=== PATIENT | male | born 1990 | race Two or more races ===

== ENCOUNTER 2019-07-22 16:02 | Emergency (ER) | payer MEDICAID ==
[~2019-07-22] VITALS: Ht 175.3 cm; Wt 77.1 kg
--- NOTE | 2019-07-22 16:20 | NUR ---
CAME IN FOR RLQ PAIN SINCE THURSDAY, WORSE TODAY, TO ER BED 10, HOOKED TO MONITOR, CHANGED TO HOSP GOWN, WARM BLANKET PROVIDED, AWAITING MD MATTHEW.
--- NOTE | 2019-07-22 17:34 | NUR ---
DR AU AT BEDSIDE
[2019-07-22 17:53] LABS: BASOPHILS % (AUTO) 0.4 % (0.0-2.0); EOSINOPHILS % (AUTO) 1.5 % (0.0-6.0); HEMATOCRIT 45 % (39-51); HEMOGLOBIN 15.4 g/dL (13.5-17.5); LYMPHOCYTES # (AUTO) 1.7 /CMM (0.8-4.8); LYMPHOCYTES % (AUTO) 22.5 % (20.0-44.0); MEAN CORPUSCULAR HGB CONC 34 g/dl (31.0-36.0); MEAN CORPUSCULAR VOLUME 91 fL (80-96); MONOCYTES # (AUTO) 0.7 /CMM (0.1-1.30); MONOCYTES % (AUTO) 9.5 % (2.0-12.0); NEUTROPHILS # (AUTO) 4.8 /CMM (1.8-8.9); NEUTROPHILS % (AUTO) 66.1 % (43.0-81.0); PLATELET COUNT (AUTO) 224 /CMM (150-450); RED BLOOD CELL COUNT(AUTO) 4.98 MIL/uL (4.5-6.0); WHITE BLOOD COUNT (AUTO) 7.3 K/uL (4.3-11.0)
[2019-07-22] MEDS ORDERED: AZITHROMYCIN 250 MG TABLET ONE (17:54)
[2019-07-22] MEDS ORDERED: CEFTRIAXONE 500 MG VIAL ONE (17:54)
[2019-07-22] MEDS ORDERED: LIDOCAINE /MPF 1% VIAL 5 ML VIAL ONE (17:54)
[2019-07-22] MEDS ORDERED: CEFTRIAXONE 500 MG VIAL IM ONE (18:00)
[2019-07-22] MEDS ORDERED: IV NS 0.9% 1,000 ML BAG IV ONE (18:00)
[2019-07-22] MEDS ORDERED: AZITHROMYCIN 250 MG TABLET PO ONE (18:00)
[2019-07-22 18:06] LABS: ALBUMIN 4.1 g/dL (3.4-5.0); BILIRUBIN,DIRECT 0.1 mg/dL (0.0-0.2); BILIRUBIN,TOTAL 0.5 mg/dL (0.2-1.0); CALCIUM, SERUM 9.2 mg/dL (8.5-10.1); POTASSIUM 4.2 mmol/L (3.5-5.1); TOTAL PROTEIN, SERUM 8.4 g/dL (6.4-8.2)
[2019-07-22] MEDS ORDERED: IOHEXOL-300 100 ML VIAL IV ONE (18:14)
[2019-07-22] MEDS ORDERED: CT SWABBABLE VALVE TRANS SET 1 EA INFUS.SET MC ONE (18:14)
[2019-07-22] MEDS ORDERED: IV NS 0.9% 250 ML IV ONE (18:14)
[2019-07-22 18:44] LABS: APPEARANCE,URINE Slightly Cloudy (CLEAR); BILIRUBIN,URINE Negative (NEGATIVE); BLOOD, URINE Negative Ery/uL (NEGATIVE); COLOR,URINE Light yellow (YELLOW); KETONES,URINE Negative (NEGATIVE); LEUKOCYTE ESTERASE ,URINE Negative (NEGATIVE); NITRITE, URINE Negative (NEGATIVE); PROTEIN,URINE Negative (NEGATIVE); UGLUCOSE Negative (NEGATIVE); UROBILINOGEN,URINE 0.2 EU/dL (0.2)
--- NOTE | 2019-07-22 19:18 | NUR ---
IV removed. Catheter intact and site benign. Pressure and 4x4 applied to site. No bleeding noted.Patient discharged to home in stable condition. Written and verbal after care instructions given. Patient verbalizes understanding of instruction.
[2019-07-22 19:19] VITALS: BP 122/69
== END 2019-07-22 19:21 | disposition home or self-care (01) ==
LOC: ER 16:05
DX: K63.89 Other specified diseases of intestine (principal); R19.7 Diarrhea, unspecified; Z60.2 Problems related to living alone
CPT/HCPCS: 36415; 74177; 80048; 80076; 81001; 83690; 85025; 87491; 87591; 96360; 96372; 99284; J0696; J3490; J7030; J7050; Q9967; 81000-TC